=== PATIENT | female | born 1940 | race Caucasian/White ===

== ENCOUNTER 2019-04-27 14:00 | Outpatient (CLI) | payer MEDICARE ==
--- NOTE | 2019-04-27 20:41 | BD ---
DEXA BONE DENSITY SCAN: 04/27/2019 HISTORY: Postmenopausal female undergoing screening for osteoporosis. COMPARISON: None. FINDINGS: LUMBAR SPINE BMD (g/cm2) T-SCORE L1 1.104 1.0 L2 1.404 3.4 L3 1.348 2.4 L4 1.195 1.2 TOTAL 1.261 1.9 FEMORAL NECK 0.657 -1.7 TOTAL 0.775 -1.4 The FRAX-WHO Fracture Risk Assessment Tool reports a 10 year fracture risk in an untreated patient at 14% for a major osteoporotic fracture and 3.4% for a hip fracture IMPRESSION: Osteopenia within the femoral neck/proximal femur, correlating with a moderately increased risk for f racture. POS: [place]
== END 2019-04-27 14:01 | disposition home or self-care (01) ==
LOC: BICMAMMO 14:00
PROVIDERS: ATTEND Internal Medicine
DX: M81.0 Age-related osteoporosis without current pathological fracture (principal); M85.859 Other specified disorders of bone density and structure, unspecified thigh
CPT/HCPCS: 77080

== ENCOUNTER 2021-06-02 13:07 | Outpatient (CLI) | payer MEDICARE | END 2021-06-02 13:08 | disposition home or self-care (01) | LOC: BICMAMMO 13:07 | PROVIDERS: ATTEND Internal Medicine | DX: Z12.31 Encounter for screening mammogram for malignant neoplasm of breast (principal); Z13.820 Encounter for screening for osteoporosis; Z78.0 Asymptomatic menopausal state; M85.851 Other specified disorders of bone density and structure, right thigh; M85.852 Other specified disorders of bone density and structure, left thigh | CPT/HCPCS: 77063; 77067; 77080 ==

== ENCOUNTER 2022-06-04 13:51 | Outpatient (CLI) | payer MEDICARE, OTHER | END 2022-06-04 13:52 | disposition home or self-care (01) | LOC: BICMAMMO 13:51 | PROVIDERS: ATTEND Internal Medicine | DX: Z12.31 Encounter for screening mammogram for malignant neoplasm of breast (principal) | CPT/HCPCS: 77063; 77067 ==

== ENCOUNTER 2023-01-12 17:56 | Inpatient (IN) | payer MEDICARE, OTHER ==
[2023-01-12] MEDS ORDERED: Morphine 4 MG/ML VIAL ONE (18:14)
[2023-01-12 18:28] LABS: #Basophils 0.1 thou/uL (0.0-0.2); #Eosinphils 0.1 thou/uL (0.0-0.7); #Monocytes 0.7 thou/uL (0.11-0.59); #Neutrophils 11.7 thou/uL (1.40-6.50); %Basophils 0.6 % (0.0-1.0); %Eosinophils 0.6 % (0.0-10.0); %Lymphocytes 9.9 % (21.0-51.0); %Neutrophils 83.3 % (42.0-75.0); Hemoglobin 13.7 g/dL (12.0-16.0); Mean Corpuscular HGB CONC 33.7 g/dL (32.0-36.0); Mean Corpuscular Hemoglobin 30.2 pg (27.0-31.0); Mean Corpuscular Volume 89.8 fl (78.0-98.0); Mean Platelet Volume 10.6 fL (7.4-10.4); Platelet Count 171 10x3/uL (130-400); RBC Distribution Width 12.2 % (11.5-14.5); Red Blood Cell (RBC) Count 4.53 mill/uL (4.20-5.40)
[2023-01-12 19:00] LABS: ALT (SGPT) 19 U/L (8-55); AST (SGOT) 32 U/L (5-34); Albumin 4.1 g/dL (3.4-4.8); Alkaline Phosphatase 47 U/L (40-110); Anion Gap 16 mmol/L (10-20); BUN (Urea Nitrogen) 14 mg/dL (9.8-20.1); Bilirubin, Total 0.7 mg/dL (0.2-1.2); Calc. Creatinine Clearance 0 mL/min (70-130); Calcium 9.6 mg/dL (7.8-10.44); Carbon Dioxide 20 mmol/L (23-31); Chloride 108 mmol/L (98-107); Estimated GFR 84; Globulin 3.2 g/dL (2.4-3.5); Glucose 133 mg/dL (83-110); Potassium 4.4 mmol/L (3.5-5.1); Protein, Total 7.3 g/dL (5.8-8.1); Sodium 140 mmol/L (136-145)
[2023-01-12] MEDS ORDERED: hydrALAZINE 20 MG/ML VIAL SLOW IVP PRN (19:42)
[2023-01-12] MEDS ORDERED: Ondansetron PF 4 MG/2 ML Vial IVP PRN (19:42)
[2023-01-12] MEDS ORDERED: Ipratropium/Albuterol 3 ML NEB NEB PRN (19:42)
[2023-01-12] MEDS ORDERED: Senokot 8.6 MG TAB PO PRN (20:00)
[2023-01-12 20:39] LABS: Bacteria/HPF None Seen HPF (None Seen); Bilirubin Negative (Negative); Blood, Urine Negative (Negative); CAUTI Indications for Culture Pelvic or flank pain; Clarity Extra Turbid (Clear); Glucose, Urine (Dipstick) Normal (Negative); Ketone, Urine 20 mg/dL (Negative); Leukocyte 75 Leu/uL (Negative); Nitrite Negative (Negative); Protein, Urine (Dipstick) 10 mg/dL (Neg-Trace); RBC/HPF 0-3 HPF (0-3); Squamous Epithelial 0-3 HPF (0-3); Urobilinogen Normal mg/dL (Less than 2)
[2023-01-12 20:41] LABS: Urine Culture Reflex No No
[2023-01-12] MEDS: Acetaminophen 325 MG TAB PO SCH (21:42)
[2023-01-12] MEDS: Morphine 2 MG/ML VIAL SLOW IVP PRN (21:43)
[2023-01-12] MEDS: Famotidine/PF 20 mg/2ml Vial SLOW IVP SCH (21:43)
[2023-01-12] MEDS: Sodium Chloride 0.9% 1,000 ML IV SCH ×2 (22:07→22:36)
[2023-01-12 23:02] VITALS: BMI 24.9
[2023-01-12] MEDS: Ketorolac Tromethamine 30 MG/ML VIAL IVP SCH (23:29)
[2023-01-12] MEDS: traMADol HCl 50 MG TAB PO PRN (23:30)
[2023-01-13] MEDS: Morphine 2 MG/ML VIAL SLOW IVP PRN ×3 (00:31→05:24)
[2023-01-13] MEDS: Acetaminophen 325 MG TAB PO SCH ×4 (01:57→21:48)
[2023-01-13] MEDS: traMADol HCl 50 MG TAB PO PRN ×2 (05:23→21:55)
[2023-01-13] MEDS: Ketorolac Tromethamine 30 MG/ML VIAL IVP SCH ×3 (05:25→17:31)
[2023-01-13] MEDS: Sodium Chloride 0.9% 1,000 ML IV SCH ×2 (05:31→13:18)
[2023-01-13 06:31] LABS: Red Blood Cell (RBC) Count 3.69 mill/uL (4.20-5.40); White Blood Cell (WBC) Count 8.1 10x3/uL (4.8-10.8)
[2023-01-13 06:32] LABS: #Basophils 0.1 thou/uL (0.0-0.2); #Monocytes 0.7 thou/uL (0.11-0.59); #Neutrophils 5.7 thou/uL (1.40-6.50); %Basophils 0.6 % (0.0-1.0); %Eosinophils 0.5 % (0.0-10.0); %Lymphocytes 19.3 % (21.0-51.0); Hemoglobin 11.2 g/dL (12.0-16.0); Mean Corpuscular HGB CONC 32.7 g/dL (32.0-36.0); Mean Corpuscular Hemoglobin 30.4 pg (27.0-31.0); Mean Platelet Volume 11.1 fL (7.4-10.4); Platelet Count 148 10x3/uL (130-400); RBC Distribution Width 12.3 % (11.5-14.5)
[2023-01-13 06:46] LABS: Mean Corpuscular Volume 92.7 fl (78.0-98.0)
[2023-01-13 06:58] LABS: INR-International Normal Ratio 1.2; PTT 36.8 sec (22.9-36.1); Prothrombin Time 15.3 sec (12.0-14.7)
[2023-01-13 06:59] LABS: Anion Gap 12 mmol/L (10-20); BUN (Urea Nitrogen) 13 mg/dL (9.8-20.1); Calc. Creatinine Clearance 86 mL/min (70-130); Calcium 8.3 mg/dL (7.8-10.44); Carbon Dioxide 21 mmol/L (23-31); Chloride 108 mmol/L (98-107); Estimated GFR 90; Glucose 93 mg/dL (83-110); Potassium 3.8 mmol/L (3.5-5.1); Sodium 137 mmol/L (136-145)
[2023-01-13] MEDS ORDERED: CEFAZOLIN 2 GM in Sodium Chloride 0.9% 100 ML IVPB SCH (07:45)
[2023-01-13] MEDS: Polyethylene Glycol 3350 17 GM Packet PO SCH (07:51)
[2023-01-13] MEDS: Famotidine/PF 20 mg/2ml Vial SLOW IVP SCH ×2 (08:01→21:47)
[2023-01-13] MEDS ORDERED: Sodium Chloride 0.9% 0 ML ONE (09:52)
[2023-01-13] MEDS ORDERED: CEFAZOLIN 2 GM VIAL ONE (09:52)
[2023-01-13] MEDS ORDERED: Levofloxacin 500 mg/D5W 100 ml Premix Bag ONE (09:59)
[2023-01-13] MEDS ORDERED: fentaNYL PF 100 MCG/2 ML SYRINGE ONE (10:05)
[2023-01-13] MEDS ORDERED: PROPOFOL 200 MG/20 ML VIAL ONE (10:29)
[2023-01-13] MEDS ORDERED: Dexamethasone 20 MG/5 ML VIAL ONE (10:29)
[2023-01-13] MEDS ORDERED: ePHEDrine Sulfate 50 MG/10 ML VIAL ONE (10:29)
[2023-01-13] MEDS ORDERED: Ondansetron PF 4 MG/2 ML Vial ONE (10:29)
[2023-01-13] MEDS ORDERED: Lidocaine 1% PF 5 ML VIAL ONE (10:29)
[2023-01-13] MEDS ORDERED: Morphine Sulfate 2 MG/ML SYRINGE SLOW IVP PRN (12:20)
[2023-01-13] MEDS ORDERED: Ondansetron HCl/PF 4 MG/2 ML Vial IVP PRN (12:20)
[2023-01-13] MEDS ORDERED: Promethazine HCl 25 MG/ML VIAL IM PRN (12:20)
[2023-01-13] MEDS: CEFAZOLIN 2 GM in Sodium Chloride 0.9% 100 ML IVPB SCH (17:30)
[2023-01-13] MEDS: Senokot 8.6 MG TAB PO SCH (21:48)
[2023-01-14] MEDS: Ketorolac Tromethamine 30 MG/ML VIAL IVP SCH (00:43)
[2023-01-14] MEDS: CEFAZOLIN 2 GM in Sodium Chloride 0.9% 100 ML IVPB SCH (01:00)
[2023-01-14] MEDS: Acetaminophen 325 MG TAB PO SCH ×4 (02:02→21:18)
[2023-01-14 06:34] LABS: #Monocytes 0.6 thou/uL (0.11-0.59); #Neutrophils 5.9 thou/uL (1.40-6.50); %Basophils 0.4 % (0.0-1.0); %Eosinophils 0.3 % (0.0-10.0); %Monocytes 7.4 % (0.0-10.0); %Neutrophils 76.5 % (42.0-75.0); Hemoglobin 9.5 g/dL (12.0-16.0); Mean Corpuscular HGB CONC 33.1 g/dL (32.0-36.0); Mean Corpuscular Hemoglobin 30.4 pg (27.0-31.0); Mean Platelet Volume 11.5 fL (7.4-10.4); Platelet Count 118 10x3/uL (130-400); RBC Distribution Width 12.3 % (11.5-14.5); Red Blood Cell (RBC) Count 3.12 mill/uL (4.20-5.40); White Blood Cell (WBC) Count 7.7 10x3/uL (4.8-10.8)
[2023-01-14 07:01] LABS: Anion Gap 9 mmol/L (10-20); BUN (Urea Nitrogen) 15 mg/dL (9.8-20.1); Calc. Creatinine Clearance 85 mL/min (70-130); Calcium 7.9 mg/dL (7.8-10.44); Carbon Dioxide 22 mmol/L (23-31); Chloride 107 mmol/L (98-107); Estimated GFR 90; Glucose 104 mg/dL (83-110); Magnesium 2.1 mg/dL (1.6-2.6); Phosphorus 2.5 mg/dL (2.3-4.7); Potassium 3.8 mmol/L (3.5-5.1); Sodium 134 mmol/L (136-145)
[2023-01-14] MEDS: Famotidine 20 MG TAB PO SCH ×2 (08:52→21:18)
[2023-01-14] MEDS: Multivitamin W/ Minerals 1 TAB PO SCH (08:52)
[2023-01-14] MEDS: Polyethylene Glycol 3350 17 GM Packet PO SCH (08:52)
[2023-01-14] MEDS: Senokot 8.6 MG TAB PO SCH (13:06)
[2023-01-14] MEDS: Ascorbic Acid 500 mg Chewable Tablet PO SCH (21:18)
[2023-01-14] MEDS ORDERED: Cyclobenzaprine 10 MG TAB PO SCH (23:15)
[2023-01-15] MEDS: traMADol HCl 50 MG TAB PO PRN ×2 (00:46→23:42)
[2023-01-15] MEDS: Acetaminophen 325 MG TAB PO SCH ×4 (01:00→21:31)
[2023-01-15 05:46] LABS: #Basophils 0.1 thou/uL (0.0-0.2); #Eosinphils 0.2 thou/uL (0.0-0.7); #Monocytes 0.6 thou/uL (0.11-0.59); #Neutrophils 5.1 thou/uL (1.40-6.50); %Basophils 0.7 % (0.0-1.0); %Eosinophils 2.4 % (0.0-10.0); %Lymphocytes 16.1 % (21.0-51.0); %Monocytes 8.5 % (0.0-10.0); %Neutrophils 71.9 % (42.0-75.0); Hemoglobin 8.7 g/dL (12.0-16.0); Mean Corpuscular HGB CONC 33.1 g/dL (32.0-36.0); Mean Corpuscular Hemoglobin 30.7 pg (27.0-31.0); Mean Corpuscular Volume 92.9 fl (78.0-98.0); Mean Platelet Volume 11.3 fL (7.4-10.4); RBC Distribution Width 12.4 % (11.5-14.5); Red Blood Cell (RBC) Count 2.83 mill/uL (4.20-5.40); White Blood Cell (WBC) Count 7.1 10x3/uL (4.8-10.8)
[2023-01-15 06:18] LABS: Platelet Count 118 10x3/uL (130-400)
[2023-01-15] MEDS: Ascorbic Acid 500 mg Chewable Tablet PO SCH ×2 (09:29→21:31)
[2023-01-15] MEDS: Famotidine 20 MG TAB PO SCH ×2 (09:29→21:31)
[2023-01-15] MEDS: Ferrous Sulfate 325 MG TAB PO SCH ×2 (09:29→16:22)
[2023-01-15] MEDS: Multivitamin W/ Minerals 1 TAB PO SCH (09:30)
[2023-01-15] MEDS: Polyethylene Glycol 3350 17 GM Packet PO SCH (09:30)
[2023-01-15] MEDS ORDERED: Aspirin 81 mg Enteric Coated Tablet PO SCH (21:00)
[2023-01-15] MEDS: Senokot 8.6 MG TAB PO SCH (21:31)
[2023-01-16] MEDS: Acetaminophen 325 MG TAB PO SCH ×3 (03:35→17:16)
[2023-01-16] MEDS: Famotidine 20 MG TAB PO SCH (10:15)
[2023-01-16] MEDS: Multivitamin W/ Minerals 1 TAB PO SCH (10:15)
[2023-01-16] MEDS: Ferrous Sulfate 325 MG TAB PO SCH ×2 (10:15→17:16)
[2023-01-16] MEDS: Ascorbic Acid 500 mg Chewable Tablet PO SCH (10:15)
[2023-01-16] MEDS: traMADol HCl 50 MG TAB PO PRN ×2 (10:16→17:16)
[2023-01-16] MEDS: Polyethylene Glycol 3350 17 GM Packet PO SCH (10:16)
[2023-01-16 15:17] VITALS: BP 123/71; TEMP 98.3
== END 2023-01-16 19:00 | DRG 482 ==
LOC: ERS 17:56 → SURG A 19:42
PROVIDERS: ADMIT Specialist; ATTEND Specialist
PROC: 0QS704Z Reposition Left Upper Femur with Internal Fixation Device, Open Approach (ICD-10-PCS; principal; 2023-01-13)
DX: S72.142A Displaced intertrochanteric fracture of left femur, initial encounter for closed fracture (principal); M81.0 Age-related osteoporosis without current pathological fracture; Z96.653 Presence of artificial knee joint, bilateral; G89.11 Acute pain due to trauma; Z98.890 Other specified postprocedural states; Z79.899 Other long term (current) drug therapy; W18.30XA Fall on same level, unspecified, initial encounter
CPT/HCPCS: 36415; 51701; 71045; 80048; 80053; 81001; 83735; 84100; 85025; 85610; 85730; 86850; 86900; 86901; 93005; 96374; C1713; G0390; J1100; J1885; J1956; J2270; J2272; J2405; J2704; J3490; J7050; S0028

== ENCOUNTER 2023-03-29 11:41 | Outpatient (CLI) | payer MEDICARE, OTHER | END 2023-03-29 11:42 | disposition home or self-care (01) | LOC: PET 11:41 | PROVIDERS: ATTEND Internal Medicine | DX: R91.1 Solitary pulmonary nodule (principal) | CPT/HCPCS: 78815; A9552 ==

== ENCOUNTER 2023-06-10 12:52 | Outpatient (CLI) | payer MEDICARE, OTHER | END 2023-06-10 12:53 | disposition home or self-care (01) | LOC: BICMAMMO 12:52 | PROVIDERS: ATTEND Internal Medicine | DX: Z12.31 Encounter for screening mammogram for malignant neoplasm of breast (principal); Z13.820 Encounter for screening for osteoporosis; M85.851 Other specified disorders of bone density and structure, right thigh; Z78.0 Asymptomatic menopausal state | CPT/HCPCS: 77063; 77067; 77080 ==